=== PATIENT | female | born 1940 | race Caucasian/White ===

== ENCOUNTER 2019-08-16 18:29 | Emergency (ER) | payer MEDICARE, OTHER ==
[~2019-08-16] VITALS: Ht 137.2 cm; Wt 70.0 kg
[2019-08-16 19:37] LABS: BASOPHILS % (AUTO) 0.3 % (0-1); EOSINOPHILS # (AUTO) 0.1 X10'3 (0-0.9); EOSINOPHILS % (AUTO) 1.1 % (0-6); HEMATOCRIT 38.1 % (35.0-45.0); LYMPHOCYTES # (AUTO) 1.3 X10'3 (1.1-4.8); LYMPHOCYTES % (AUTO) 21.3 % (21-51); MEAN CORPUSCULAR HEMOGLOBIN 31.1 PG (27.0-31.0); MEAN CORPUSCULAR VOLUME 91.4 FL (78-98); MEAN PLATELET VOLUME 7.3 FL (7.4-10.4); MONOCYTES # (AUTO) 0.7 X10'3 (0-0.9); NEUTROPHILS # (AUTO) 4.1 X10'3 (1.8-7.7); NEUTROPHILS % (AUTO) 66.3 % (42-75); PLATELET COUNT 284 X10'3 (140-440); RED BLOOD COUNT 4.17 X10'6 (4.20-5.60); RED CELL DISTRIBUTION WIDTH 13.4 % (11.5-14.5); WHITE BLOOD COUNT 6.2 X10'3 (4.5-11.0)
[2019-08-16 19:47] LABS: ALANINE AMINOTRANSFERASE 37 U/L (12-78); ALBUMIN 3.7 G/DL (3.4-5.0); ALKALINE PHOSPHATASE 109 IU/L (46-116); ANION GAP 10 (8-16); ASPARTATE AMINO TRANSFERASE 32 U/L (10-37); BILIRUBIN,TOTAL 0.5 MG/DL (0.1-1.0); BLOOD UREA NITROGEN 12 MG/DL (7-18); BUN/CREATININE RATIO 18.8 (6.6-38.0); CALCIUM 8.5 MG/DL (8.5-10.1); CHLORIDE 96 MMOL/L (99-107); CREATININE 0.64 MG/DL (0.40-0.90); GLUCOSE 106 MG/DL (70-104); POTASSIUM 3.9 MMOL/L (3.5-5.1); SODIUM 131 MMOL/L (135-145); TOTAL CARBON DIOXIDE 25.2 MMOL/L (24-32); TOTAL PROTEIN 7.5 G/DL (6.4-8.2); eGFR 89 ML/MIN
[2019-08-16 19:55] LABS: MAGNESIUM 1.9 MG/DL (1.5-2.4)
[2019-08-16 20:16] LABS: CLARITY,URINE CLEAR (Clear); COLOR,URINE YELLOW (Yellow); GLUCOSE, URINE NEGATIVE (Neg); KETONES,URINE TRACE mg/dl (Neg); LEUKOCYTE ESTERASE ,URINE TRACE (Neg); NITRITES, URINE NEGATIVE (Neg); OCCULT BLOOD,URINE TRACE-INTACT (Neg); PROTEIN,URINE NEGATIVE (Neg); UROBILINOGEN,URINE 0.2 E.U/dL (0.2-1.0)
[2019-08-16 20:17] LABS: UA COLLECTION TYPE OTHER
[2019-08-16 20:25] LABS: BACTERIA,URINE 4+ /HPF (Neg); MUCUS STRANDS NONE SEEN /LPF (Neg); RBC,URINE NONE SEEN /HPF (0-2); SQUAMOUS EPITHELIAL CELL,UR NONE SEEN /LPF (FEW); WBC,URINE 0-4 /HPF (0-4)
[2019-08-16 22:06] VITALS: BP 122/93
== END 2019-08-16 22:09 | disposition home or self-care (01) ==
LOC: EDBD 18:30 → ER 18:30
DX: R42 Dizziness and giddiness (principal); I10 Essential (primary) hypertension; R11.0 Nausea; E78.00 Pure hypercholesterolemia, unspecified; E03.9 Hypothyroidism, unspecified
CPT/HCPCS: 36415; 71045; 80053; 81001; 83735; 83880; 84484; 85025; 87077; 87088; 87186; 93005; 99284

== ENCOUNTER 2019-09-05 10:48 | Inpatient (IN) | payer MEDICARE, OTHER ==
[~2019-09-05] VITALS: Ht 162.6 cm; Wt 61.0 kg
--- NOTE | 2019-09-05 11:07 | NUR ---
BREAKING PRIMARY rn, PT IS GETTING CHEST X-RAY, NO DISTRESS
[2019-09-05 11:11] LABS: BASOPHILS % (AUTO) 0.5 % (0-1); EOSINOPHILS # (AUTO) 0.1 X10'3 (0-0.9); EOSINOPHILS % (AUTO) 2.4 % (0-6); HEMATOCRIT 38.2 % (35.0-45.0); HEMOGLOBIN 12.9 g/dl (12.0-16.0); LYMPHOCYTES # (AUTO) 1.6 X10'3 (1.1-4.8); LYMPHOCYTES % (AUTO) 27.3 % (21-51); MEAN CORPUSCULAR HEMOGLOBIN 30.9 PG (27.0-31.0); MEAN CORPUSCULAR HGB CONC 33.6 g/dL (33.0-36.5); MEAN CORPUSCULAR VOLUME 91.9 FL (78-98); MEAN PLATELET VOLUME 7.7 FL (7.4-10.4); MONOCYTES # (AUTO) 0.7 X10'3 (0-0.9); MONOCYTES % (AUTO) 12.6 % (2-12); NEUTROPHILS # (AUTO) 3.3 X10'3 (1.8-7.7); NEUTROPHILS % (AUTO) 57.2 % (42-75); PLATELET COUNT 238 X10'3 (140-440); RED BLOOD COUNT 4.16 X10'6 (4.20-5.60); RED CELL DISTRIBUTION WIDTH 13.6 % (11.5-14.5); WHITE BLOOD COUNT 5.8 X10'3 (4.5-11.0)
[2019-09-05 11:21] LABS: PARTIAL THROMBOPLASTIN TIME 30 SECONDS (22-32)
[2019-09-05 11:28] LABS: ALANINE AMINOTRANSFERASE 27 U/L (12-78); ALBUMIN 3.6 G/DL (3.4-5.0); ALBUMIN/GLOBULIN RATIO 0.9 (1.1-1.5); ALKALINE PHOSPHATASE 99 IU/L (46-116); ANION GAP 8 (8-16); ASPARTATE AMINO TRANSFERASE 29 U/L (10-37); BILIRUBIN,TOTAL 0.6 MG/DL (0.1-1.0); BLOOD UREA NITROGEN 9 MG/DL (7-18); BUN/CREATININE RATIO 13.4 (6.6-38.0); CALCIUM 8.5 MG/DL (8.5-10.1); CHLORIDE 99 MMOL/L (99-107); CREATININE 0.67 MG/DL (0.40-0.90); GLUCOSE 100 MG/DL (70-104); POTASSIUM 4.3 MMOL/L (3.5-5.1); SODIUM 133 MMOL/L (135-145); TOTAL CARBON DIOXIDE 25.8 MMOL/L (24-32); TOTAL PROTEIN 7.4 G/DL (6.4-8.2); eGFR 84 ML/MIN
[2019-09-05] MEDS ORDERED: nitroGLYCERIN 0.4mg/hour patch TD ONE (12:10)
[2019-09-05] MEDS ORDERED: aspirin 81mg tab.chew PO ONE (12:10)
[2019-09-05] MEDS ORDERED: ASCO500C15 PO (12:36)
[2019-09-05] MEDS ORDERED: VITA-129 PO (12:36)
[2019-09-05] MEDS ORDERED: CHOL100044 PO (12:36)
[2019-09-05] MEDS ORDERED: MAGN400C PO (12:36)
[2019-09-05] MEDS ORDERED: LEVO75TA7 PO (12:36)
[2019-09-05] MEDS ORDERED: CALC-854 PO (12:36)
[2019-09-05] MEDS ORDERED: PRAV20TA4 PO (12:36)
[2019-09-05] MEDS ORDERED: 5-HY100C PO (12:36)
[2019-09-05] MEDS ORDERED: UBID100C45 PO (12:36)
[2019-09-05] MEDS ORDERED: diphenhydrAMINE 25mg capsule PO PRN (12:45)
[2019-09-05] MEDS ORDERED: ondansetron/PF 4mg/2ml inj IV PRN (12:45)
[2019-09-05] MEDS ORDERED: acetaminophen 325mg tablet PO PRN ×2 (12:45)
[2019-09-05] MEDS ORDERED: HYDROcodone/acetaminophen 5mg/325mg tablet PO PRN (12:45)
[2019-09-05] MEDS ORDERED: potassium CL 10mEq/100ml bag 100 ML IV PRN ×2 (12:45)
[2019-09-05] MEDS ORDERED: potassium Cl 20 mEq SR tablet PO PRN ×2 (12:45)
[2019-09-05] MEDS ORDERED: magnesium Cl slow-release 64mg tablet PO PRN (12:45)
[2019-09-05] MEDS ORDERED: magnesium 4gm in 100ml NS 100 ML IV PRN (12:45)
[2019-09-05] MEDS ORDERED: nitroGLYCERIN 0.4mg SUBLingual tab SL PRN (12:45)
[2019-09-05] MEDS ORDERED: morphine 2 MG/ML inj. syringe IV PRN ×2 (12:45)
[2019-09-05] MEDS ORDERED: metoprolol tartrate 1mg/ml inj IV PRN (12:45)
[2019-09-05] MEDS ORDERED: HYDROcodone/acetaminophen 10/325mg tab PO PRN (12:45)
[2019-09-05] MEDS ORDERED: magnesium hydroxide 30ml (MOM) UD suspension PO PRN (12:45)
[2019-09-05] MEDS ORDERED: regadenoson 0.4mg/5ml syringe IV PRN (12:45)
[2019-09-05] MEDS: K and/or MAG REPLACEMENT MC SCH (12:45)
[2019-09-05] MEDS ORDERED: aminophylline 250mg/10ml inj. IV PRN (12:45)
[2019-09-05] MEDS ORDERED: mag hydrox/Alum hydrox/simeth 30ml oral suspension PO PRN (12:45)
[2019-09-05] MEDS ORDERED: magnesium 2GM in 50ml NS 50 ML IV PRN (12:45)
[2019-09-05] MEDS: normal saline 1000ml 1,000 ML IV SCH ×2 (13:07→21:52)
[2019-09-05 13:11] LABS: HEMOGLOBIN A1C 5.4 % (4.5-6.2)
--- NOTE | 2019-09-05 14:00 | NUR ---
Patient in room MED 310. I have received report from MOSHE Silvestre and had the opportunity to ask questions and assume patient care.
[2019-09-05 14:18] LABS: MAGNESIUM 1.8 MG/DL (1.5-2.4)
[2019-09-05] MEDS ORDERED: pneumococcal 23-VAL P-sac vacc 25 mcg/0.5ml vial IMVAC ONE (14:20)
[2019-09-05 14:30] VITALS: BP 132/68
--- NOTE | 2019-09-05 14:30 | NUR ---
Patient arrived on the unit.
[2019-09-05 15:00] VITALS: BP 136/59
[2019-09-05] MEDS ORDERED: amLODIPine 5mg tablet PO ONE (16:20)
--- NOTE | 2019-09-05 18:08 | NUR ---
Patient in room MED 310. I have received report from Minesh MESA and had the opportunity to ask questions and assume patient care. bedside reported completed. pt a/o x4, no distress noted. fall precaution initated and implemented.
--- NOTE | 2019-09-05 18:15 | NUR ---
Problems reprioritized. Patient report given, questions answered & plan of care reviewed with MOSHE Ramirez.
--- NOTE | 2019-09-05 18:25 | NUR ---
Orientee documentation and med administration: I have reviewed and agree with all interventions, assessments performed and documented by Sally MESA.
[2019-09-05 18:53] VITALS: BP 125/62
[2019-09-05] MEDS: heparin, porcine 5000 units/ml vial SQ SCH (20:28)
[2019-09-05] MEDS ORDERED: temazepam 15mg capsule PO PRN (21:00)
[2019-09-05] MEDS ORDERED: calcium carbonate/vitamin D3 tablet PO SCH (21:00)
--- NOTE | 2019-09-05 22:22 | NUR ---
Hospitalist Dr. Maik Darling notified [id number] 1.patient sinus collette pulse ranges 53-59. pt currently has a nitro patch and denies chest pain. 2.foul smelling urine, complaints of burning, requesting a UA. response [id number] 1. change pulse parameters, ok not to call MD if patient is asymtomatic. keep nitro patch on. will continue to monitor 2. collect a UA
[2019-09-05 22:30] VITALS: BP 115/56
[2019-09-06] VITALS (11 sets, daily range): BP systolic 112–157; BP diastolic 55–70
[2019-09-06 01:24] LABS: CLARITY,URINE CLOUDY (Clear); COLOR,URINE YELLOW (Yellow); GLUCOSE, URINE NEGATIVE (Neg); KETONES,URINE NEGATIVE (Neg); LEUKOCYTE ESTERASE ,URINE MODERATE (Neg); NITRITES, URINE NEGATIVE (Neg); OCCULT BLOOD,URINE TRACE-INTACT (Neg); PH,URINE 6.5 (4.8-8.0); PROTEIN,URINE NEGATIVE (Neg); UROBILINOGEN,URINE 0.2 E.U/dL (0.2-1.0)
[2019-09-06 01:34] LABS: UA COLLECTION TYPE NON-SPECIFIED
[2019-09-06 01:36] LABS: BACTERIA,URINE 2+ /HPF (Neg); RBC,URINE NONE SEEN /HPF (0-2); SQUAMOUS EPITHELIAL CELL,UR FEW /LPF (FEW); WBC CLUMPS,URINE FEW /HPF (NEGATIVE)
[2019-09-06 05:05] LABS: BASOPHILS % (AUTO) 0.5 % (0-1); EOSINOPHILS # (AUTO) 0.2 X10'3 (0-0.9); EOSINOPHILS % (AUTO) 2.8 % (0-6); HEMATOCRIT 36.2 % (35.0-45.0); HEMOGLOBIN 12.3 g/dl (12.0-16.0); LYMPHOCYTES # (AUTO) 1.8 X10'3 (1.1-4.8); LYMPHOCYTES % (AUTO) 28.7 % (21-51); MEAN CORPUSCULAR HEMOGLOBIN 31.1 PG (27.0-31.0); MEAN CORPUSCULAR HGB CONC 33.9 g/dL (33.0-36.5); MEAN CORPUSCULAR VOLUME 91.8 FL (78-98); MONOCYTES # (AUTO) 0.7 X10'3 (0-0.9); MONOCYTES % (AUTO) 11.6 % (2-12); NEUTROPHILS # (AUTO) 3.5 X10'3 (1.8-7.7); NEUTROPHILS % (AUTO) 56.4 % (42-75); PLATELET COUNT 227 X10'3 (140-440); RED BLOOD COUNT 3.95 X10'6 (4.20-5.60); RED CELL DISTRIBUTION WIDTH 13.6 % (11.5-14.5); WHITE BLOOD COUNT 6.2 X10'3 (4.5-11.0)
[2019-09-06 05:24] LABS: ALANINE AMINOTRANSFERASE 24 U/L (12-78); ALBUMIN 3.1 G/DL (3.4-5.0); ALBUMIN/GLOBULIN RATIO 0.8 (1.1-1.5); ALKALINE PHOSPHATASE 88 IU/L (46-116); ANION GAP 7 (8-16); ASPARTATE AMINO TRANSFERASE 25 U/L (10-37); BILIRUBIN,TOTAL 0.5 MG/DL (0.1-1.0); BLOOD UREA NITROGEN 9 MG/DL (7-18); BUN/CREATININE RATIO 15.5 (6.6-38.0); CALCIUM 8.7 MG/DL (8.5-10.1); CHLORIDE 104 MMOL/L (99-107); CHOL/HDL RATIO 2.2 (0.00-4.99); CHOLESTEROL 195 MG/DL (0-200); CREATININE 0.58 MG/DL (0.40-0.90); GLUCOSE 86 MG/DL (70-104); HDL CHOLESTEROL 90 MG/DL (35-60); LDL CHOLESTEROL 100 MG/DL (50-100); MAGNESIUM 1.7 MG/DL (1.5-2.4); PHOSPHORUS 3.5 MG/DL (2.3-4.5); SODIUM 138 MMOL/L (135-145); TOTAL CARBON DIOXIDE 27.3 MMOL/L (24-32); TOTAL PROTEIN 6.8 G/DL (6.4-8.2); TRIGLYCERIDES 50 MG/DL (20-135); eGFR > 90 ML/MIN
--- NOTE | 2019-09-06 06:25 | NUR ---
Patient in room MED 310. I have received report from MOSHE Ramirez and had the opportunity to ask questions and assume patient care.
[2019-09-06] MEDS: heparin, porcine 5000 units/ml vial SQ SCH (07:34)
[2019-09-06] MEDS ORDERED: HYDROXYTRYPTOPHAN 100 MG PO SCH (08:00)
[2019-09-06] MEDS ORDERED: amLODIPine 5mg tablet PO SCH (08:00)
[2019-09-06] MEDS ORDERED: vitamin D (cholecalciferol) 1,000 unit tablet PO SCH (08:00)
[2019-09-06] MEDS ORDERED: magnesium oxide 400mg tablet PO SCH (08:00)
[2019-09-06] MEDS: K and/or MAG REPLACEMENT MC SCH (08:00)
[2019-09-06] MEDS ORDERED: vitamin B comp w/Vit. C tab 1 TAB TABLET PO SCH (08:00)
[2019-09-06] MEDS ORDERED: ascorbic acid 500mg tablet PO SCH (08:00)
[2019-09-06] MEDS ORDERED: levoTHYROXINE 75mcg tablet PO SCH (08:00)
[2019-09-06] MEDS ORDERED: pravastatin 40mg tablet PO SCH (08:00)
[2019-09-06] MEDS ORDERED: UBIDECARENONE 100 MG PO SCH (08:00)
[2019-09-06] MEDS: normal saline 1000ml 1,000 ML IV SCH (11:23)
[2019-09-06] MEDS ORDERED: NOR5T PO (14:18)
[2019-09-06] MEDS ORDERED: PANT40TA4 PO (14:18)
--- NOTE | 2019-09-06 20:22 | NUR ---
pt. discharged from facility at 1550. pt. was wheeled by staff to personal car accompanied by . pt. signed and understood all paperwork. pt. IV was d/c intact. pt. new meds were called into [place]. pt. left with all belongings.
[2019-09-08] MEDS ORDERED: CEFD300C3 PO (09:05)
--- NOTE | 2019-09-08 11:08 | NUR ---
I CALLED PATIENT AND INFORMED THAT DR. BURLESON HAD CALLED TO INFORM THAT HER UA WAS + FOR ECOLI AND ABX HAVE BEEN ORDERED. PATIENT VERBALIZED UNDERSTANDING OF NEEDING TO [facility] [employer] NEW PRESCRIPTION FOR CEFDINER 300MG 1 TAB PO Q12H X 7DAYS @ [facility] ON [address]
== END 2019-09-06 15:50 | disposition home or self-care (01) | DRG 392 ==
LOC: ER 10:48 → ED HOLD 13:13 → MED 3N 14:30
PROVIDERS: ADMIT Family Medicine; ATTEND Family Medicine
PROC: 4A02XM4 Measurement of Cardiac Total Activity, External Approach (ICD-10-PCS; principal; 2019-09-06)
PROC: 3E033HZ Introduction of Radioactive Substance into Peripheral Vein, Percutaneous Approach (ICD-10-PCS; 2019-09-06)
DX: K21.9 Gastro-esophageal reflux disease without esophagitis (principal); E87.1 Hypo-osmolality and hyponatremia; E03.9 Hypothyroidism, unspecified; R00.1 Bradycardia, unspecified; E78.00 Pure hypercholesterolemia, unspecified; E78.5 Hyperlipidemia, unspecified; E86.1 Hypovolemia; I10 Essential (primary) hypertension; Z79.890 Hormone replacement therapy; Z79.899 Other long term (current) drug therapy; Z82.3 Family history of stroke; Z82.49 Family history of ischemic heart disease and other diseases of the circulatory system; Z90.710 Acquired absence of both cervix and uterus
CPT/HCPCS: 36415; 71045; 78452; 80053; 80061; 81001; 83036; 83735; 84100; 84443; 84484; 85025; 85610; 85730; 87077; 87081; 87088; 87186; 90732; 93005; 93017; 93306; 99285; A9500; G0378; J0280; J1644; J2785; J7030